=== PATIENT | male | born 2000 | race Caucasian/White ===

== ENCOUNTER 2022-05-02 17:51 | Emergency (ER) | payer MEDICAID ==
[~2022-05-02] VITALS: Ht 175.3 cm; Wt 71.4 kg
[2022-05-02 18:38] VITALS: BP 127/77
[2022-05-02] MEDS ORDERED: ACETAMINOPHEN 325MG TABLET PO ONE (20:30)
[2022-05-02] MEDS ORDERED: METHOCARBAMOL 500MG TABLET PO ONE (20:30)
[2022-05-02] MEDS ORDERED: IBUP-2028 MT (22:26)
[2022-05-02] MEDS ORDERED: TOPUD MT (22:26)
[2022-05-02] MEDS ORDERED: ACETAMINOPHEN 325MG TABLET PO NR (22:30)
[2022-05-02] MEDS ORDERED: METHOCARBAMOL 750MG TABLET PO NR (22:30)
== END 2022-05-02 22:30 | disposition home or self-care (01) ==
LOC: ER 17:51
DX: M54.2 Cervicalgia (principal); M79.10 Myalgia, unspecified site; V43.62XA Car passenger injured in collision with other type car in traffic accident, initial encounter; Y93.89 Activity, other specified; Y92.488 Other paved roadways as the place of occurrence of the external cause; Y99.9 Unspecified external cause status
CPT/HCPCS: 99283

== ENCOUNTER 2022-11-26 22:27 | Emergency (ER) | payer OTHER ==
[~2022-11-26] VITALS: Ht 172.7 cm; Wt 67.9 kg
[~2022-11-26 22:27] MED LIST: IBUP-2028 MT; TOPUD MT
[2022-11-26 22:38] VITALS: O2SAT 99
[2022-11-27] MEDS ORDERED: METRONIDAZOLE 500 MG PREMIX 100 ML IV ONE (00:15)
[2022-11-27] MEDS ORDERED: LEVOFLOXACIN 750MG PREMIX 150 ML IV ONE (00:15)
[2022-11-27 00:35] LABS: CHLORIDE 103 mEq/L (98-107); INDEX HEMOLYSI 1 (1-3); INDEX ICTERIC 1 (1-4); INDEX LIPEMIC 1 (1-3); POTASSIUM 3.4 mEq/L (3.5-5.1); SODIUM 137 mEq/L (136-145)
[2022-11-27 00:44] LABS: ALANINE AMINOTRANSFERASE 19 IU/L (13-61); ALBUMIN 3.6 g/dL (3.4-5.0); ASPARTATE AMINOTRANSFERASE 8 IU/L (15-37); BILIRUBIN TOTAL 0.3 mg/dL (0.1-1.0); CALCIUM 8.7 mg/dL (8.5-10.1); CARBON DIOXIDE 29 mEq/L (21-32); CREATININE 0.8 mg/dL (0.6-1.3); GLUCOSE 110 mg/dL (70-105); UREA NITROGEN BLOOD 17 mg/dL (7-21)
[2022-11-27] MEDS ORDERED: KETOROLAC 15MG/ML VIAL IV ONE (01:00)
[2022-11-27 01:32] LABS: BASOPHILS % 0.4 % (0.0-2.0); EOSINOPHILS % 0.8 % (0.0-5.0); HEMATOCRIT. 40.2 % (42.0-52.0); HEMOGLOBIN. 14.2 g/dL (14.0-18.0); LYMPHOCYTES % 20.4 % (20.0-50.0); MEAN CORPUSCULAR HGB CONC 35.2 g/dL (31.0-37.0); MEAN CORPUSCULAR VOLUME 87.9 fL (80.0-94.0); MEAN PLATELET VOLUME 8.1 fl (7.4-10.4); NEUTROPHILS % 66.4 % (40.0-76.0); PLATELET 290 x1000/uL (130-400); RED BLOOD CELL COUNT 4.58 mill/uL (4.7-6.1); RED CELL DISTRIBUTION WIDTH 12.1 % (11.6-14.6); WHITE BLOOD COUNT 13.4 x1000/uL (4.5-11.0)
[2022-11-27 01:35] LABS: DIFFERENTIAL COMMENT 1
[2022-11-27] MEDS ORDERED: IOHEXOL-300 100 ML BOTTLE ONE (03:39)
[2022-11-27 07:10] VITALS: BP 123/73; PULSE 59; RESP 12; TEMP 98.6
== END 2022-11-27 07:16 | disposition short-term general hospital (02) ==
LOC: ER 22:27
DX: L02.215 Cutaneous abscess of perineum (principal)
CPT/HCPCS: 80053; 85025; 36415; 99285; 87040; 72193; 96368; 96365; 96366; 96375; Z7610 ×4; Q9967; J1885; J3490; J1956